=== PATIENT | male | born 1970 | race Caucasian/White ===

== ENCOUNTER → 2016-11-12 | Day surgery (SDC) | payer OTHER | END | disposition home or self-care (01) | LOC: FAS 10:26 → EDBD 11:00 | DX: K21.0 Gastro-esophageal reflux disease with esophagitis (principal); Z91.041 Radiographic dye allergy status; Z98.52 Vasectomy status; Z98.890 Other specified postprocedural states; Z79.899 Other long term (current) drug therapy | CPT/HCPCS: 88305; J2704 ==